=== PATIENT | male | born 1995 | race Caucasian/White ===

== ENCOUNTER 2017-04-13 01:07 | Inpatient (IN) | payer MEDICAID ==
[~2017-04-13] VITALS: Ht 165.1 cm; Wt 89.9 kg
[2017-04-13 02:12] LABS: BASOPHILS # (AUTO) 0.04 x10^3/uL (0-0.1); BASOPHILS % (AUTO) 0 % (0-1); EOSINOPHILS # (AUTO) 0.06 x10^3/uL (0-0.4); EOSINOPHILS % (AUTO) 1 % (1-7); LYMPHOCYTES # (AUTO) 1.47 x10^3/uL (1-3.4); LYMPHOCYTES % (AUTO) 13 % (22-44); MD NO; MEAN CORPUSCULAR HEMOGLOBIN 30.7 pg (27.5-34.5); MEAN CORPUSCULAR HGB CONC 33.7 g/dL (33.2-36.2); MEAN CORPUSCULAR VOLUME 90.9 fL (81-97); MEAN PLATELET VOLUME 8.7 fL (7.4-10.4); MONOCYTES # (AUTO) 1.01 x10^3/uL (0.2-0.8); MONOCYTES % (AUTO) 9 % (2-9); NEUTROPHILS # (AUTO) 9.18 x10^3/uL (1.8-6.8); NEUTROPHILS % (AUTO) 78 % (42-75); PLATELET COUNT 127 x10^3/uL (130-400); RED BLOOD COUNT 5.05 x10^6/uL (4.38-5.82); RED CELL DISTRIBUTION WIDTH 13.2 % (9.4-14.8)
[2017-04-13 02:18] LABS: ALBUMIN 3.7 g/dL (3.4-5.0); ANION GAP 6 mmol/L (5-15); CALCIUM 8.7 mg/dL (8.5-10.1); CHLORIDE 98 mmol/L (98-107)
[2017-04-13] MEDS ORDERED: OMNIPAQUE 350 MG/ML, 75ML BOTTLE ONE (02:38)
[2017-04-13] MEDS ORDERED: CLINDAMYCIN PMX 600MG/50ML 50 ML ONE (03:26)
[2017-04-13] MEDS ORDERED: CLINDAMYCIN PMX 600MG/50ML 50 ML IV ONE (03:30)
[2017-04-13] MEDS ORDERED: MORPHINE SULFATE 4 MG/ML, 1ML ONE ×3 (03:35→17:32)
[2017-04-13] MEDS ORDERED: ONDANSETRON 2MG/ML, 2ML ONE (03:35)
[2017-04-13] MEDS ORDERED: SODIUM CHLORIDE 0.9% 1,000 ML IV ONE (03:53)
[2017-04-13] MEDS ORDERED: MORPHINE SULFATE 4 MG/ML, 1ML IVPush PRN ×2 (04:00)
[2017-04-13] MEDS ORDERED: ONDANSETRON 2MG/ML, 2ML IVPush PRN ×2 (04:00→05:00)
[2017-04-13] MEDS ORDERED: ONDANSETRON 2MG/ML, 2ML IVPush ONE (04:00)
[2017-04-13] MEDS ORDERED: ACETAMINOPHEN 325 MG TABLET PO PRN (05:00)
[2017-04-13] MEDS: KETOROLAC 30 MG/1 ML IVPush PRN ×2 (05:28→15:59)
[2017-04-13] MEDS: SODIUM CHLORIDE 0.9% 1,000 ML IV SCH ×2 (05:29→15:59)
[2017-04-13] MEDS: LACTOBACILLUS 1GM/ PACKET PO SCH ×3 (10:34→20:18)
[2017-04-13] MEDS: CLINDAMYCIN PMX 600MG/50ML 50 ML IV SCH ×2 (10:34→15:59)
[2017-04-13 12:25] VITALS: BP 112/63
[2017-04-13] MEDS ORDERED: VANCOMYCIN PMX 1GM/200ML 200 ML IV ONE (17:30)
[2017-04-13] MEDS ORDERED: VANCOMYCIN PER PHARMACY MC PRN (17:30)
[2017-04-13] MEDS: MORPHINE SULFATE 4 MG/ML, 1ML IVPush PRN (17:37)
[2017-04-13] MEDS ORDERED: PHARMACOKINETIC MONITORING MC PRN (18:00)
[2017-04-13 19:45] VITALS: BP 109/62
[2017-04-13] MEDS: NICOTINE 7 MG/24 HR PATCH.TD24 TD SCH (20:19)
[2017-04-13] MEDS: ERTAPENEM 1 GM in SODIUM CHLORIDE 0.9% 50 ML IV SCH (20:19)
[2017-04-13] MEDS: VANCOMYCIN 1,600 MG in SODIUM CHLORIDE 0.9% 250 ML IV SCH (21:12)
[2017-04-13] MEDS: OXYcodone/APAP 5/325MG TABLET PO PRN (23:09)
[2017-04-14 00:30] VITALS: BP 100/63
[2017-04-14] MEDS: SODIUM CHLORIDE 0.9% 1,000 ML IV SCH ×3 (01:29→20:49)
[2017-04-14] MEDS: MORPHINE SULFATE 4 MG/ML, 1ML IVPush PRN ×3 (03:44→19:11)
[2017-04-14 05:01] LABS: BASOPHILS # (AUTO) 0.04 x10^3/uL (0-0.1); BASOPHILS % (AUTO) 0 % (0-1); EOSINOPHILS # (AUTO) 0.15 x10^3/uL (0-0.4); EOSINOPHILS % (AUTO) 2 % (1-7); LYMPHOCYTES # (AUTO) 1.36 x10^3/uL (1-3.4); LYMPHOCYTES % (AUTO) 14 % (22-44); MD NO; MEAN CORPUSCULAR HEMOGLOBIN 30.5 pg (27.5-34.5); MEAN CORPUSCULAR HGB CONC 33.5 g/dL (33.2-36.2); MEAN CORPUSCULAR VOLUME 90.9 fL (81-97); MEAN PLATELET VOLUME 8.6 fL (7.4-10.4); MONOCYTES # (AUTO) 1.01 x10^3/uL (0.2-0.8); MONOCYTES % (AUTO) 11 % (2-9); NEUTROPHILS # (AUTO) 6.96 x10^3/uL (1.8-6.8); NEUTROPHILS % (AUTO) 73 % (42-75); PLATELET COUNT 138 x10^3/uL (130-400); RED BLOOD COUNT 4.66 x10^6/uL (4.38-5.82)
[2017-04-14] MEDS: OXYcodone/APAP 5/325MG TABLET PO PRN ×4 (05:20→21:40)
[2017-04-14 06:40] VITALS: BP 133/77
[2017-04-14] MEDS: LACTOBACILLUS 1GM/ PACKET PO SCH ×3 (08:20→20:33)
[2017-04-14] MEDS: VANCOMYCIN 1,600 MG in SODIUM CHLORIDE 0.9% 250 ML IV SCH ×2 (08:20→20:33)
[2017-04-14 14:12] VITALS: BP 132/75
[2017-04-14] MEDS: ERTAPENEM 1 GM in SODIUM CHLORIDE 0.9% 50 ML IV SCH (17:31)
[2017-04-14] MEDS: KETOROLAC 30 MG/1 ML IVPush PRN (17:31)
[2017-04-14 18:31] VITALS: BP 113/66
[2017-04-14] MEDS: NICOTINE 7 MG/24 HR PATCH.TD24 TD SCH (19:00)
[2017-04-14] MEDS: TEMAZEPAM 15 MG CAPSULE PO PRN (20:33)
[2017-04-15 01:17] VITALS: BP 130/66
[2017-04-15] MEDS: ERTAPENEM 1 GM in SODIUM CHLORIDE 0.9% 50 ML IV SCH (03:33)
[2017-04-15] MEDS: MORPHINE SULFATE 4 MG/ML, 1ML IVPush PRN (04:50)
[2017-04-15] MEDS: SODIUM CHLORIDE 0.9% 1,000 ML IV SCH ×2 (06:01→16:19)
[2017-04-15] MEDS: LACTOBACILLUS 1GM/ PACKET PO SCH ×3 (08:33→20:50)
[2017-04-15] MEDS: VANCOMYCIN 1,600 MG in SODIUM CHLORIDE 0.9% 250 ML IV SCH ×2 (08:33→20:50)
[2017-04-15 08:34] VITALS: BP 123/73
[2017-04-15 12:35] VITALS: BP 123/71
[2017-04-15 19:01] VITALS: BP 126/75
[2017-04-15] MEDS: OXYcodone/APAP 5/325MG TABLET PO PRN (19:23)
[2017-04-15] MEDS: TEMAZEPAM 15 MG CAPSULE PO PRN (20:50)
[2017-04-15] MEDS: NICOTINE 7 MG/24 HR PATCH.TD24 TD SCH (20:50)
[2017-04-16 03:02] VITALS: BP 116/72
[2017-04-16] MEDS: SODIUM CHLORIDE 0.9% 1,000 ML IV SCH ×2 (03:05→08:54)
[2017-04-16] MEDS: ERTAPENEM 1 GM in SODIUM CHLORIDE 0.9% 50 ML IV SCH (03:05)
[2017-04-16 07:19] VITALS: BP 118/72
[2017-04-16] MEDS: VANCOMYCIN 1,600 MG in SODIUM CHLORIDE 0.9% 250 ML IV SCH (08:53)
[2017-04-16] MEDS: LACTOBACILLUS 1GM/ PACKET PO SCH ×3 (08:53→21:39)
[2017-04-16] MEDS ORDERED: CEFTRIAXONE PMX 2GM/50ML 50 ML IV SCH (12:00)
[2017-04-16 13:00] VITALS: BP 110/65
[2017-04-16] MEDS: CEFTRIAXONE 2,000 MG in SODIUM CHLORIDE 0.9% 50 ML IV SCH (14:28)
[2017-04-16] MEDS: OXYcodone/APAP 5/325MG TABLET PO PRN (14:28)
[2017-04-16] MEDS: VANCOMYCIN 1,300 MG in SODIUM CHLORIDE 0.9% 250 ML IV SCH (17:22)
[2017-04-16] MEDS: NICOTINE 7 MG/24 HR PATCH.TD24 TD SCH (17:23)
[2017-04-16 19:56] VITALS: BP_SYST 122; BP_SYST 129; BP_DIAS 78; BP_DIAS 84
[2017-04-16] MEDS: TEMAZEPAM 15 MG CAPSULE PO PRN (21:38)
[2017-04-17 01:04] VITALS: BP 119/76
[2017-04-17] MEDS: VANCOMYCIN 1,300 MG in SODIUM CHLORIDE 0.9% 250 ML IV SCH ×2 (01:04→08:40)
[2017-04-17 05:42] LABS: CREATININE 0.71 mg/dL (0.7-1.3)
[2017-04-17 08:03] VITALS: BP 121/74
[2017-04-17] MEDS: LACTOBACILLUS 1GM/ PACKET PO SCH ×3 (08:40→19:49)
[2017-04-17] MEDS ORDERED: OMNIPAQUE 350 MG/ML, 75ML BOTTLE ONE (12:15)
[2017-04-17] MEDS: OXYcodone/APAP 5/325MG TABLET PO PRN ×2 (13:05→19:49)
[2017-04-17] MEDS: CEFTRIAXONE 2,000 MG in SODIUM CHLORIDE 0.9% 50 ML IV SCH (13:05)
[2017-04-17 13:40] VITALS: BP 102/61
[2017-04-17] MEDS: NICOTINE 7 MG/24 HR PATCH.TD24 TD SCH (19:00)
[2017-04-17 19:11] VITALS: BP 106/66
[2017-04-17] MEDS: TEMAZEPAM 15 MG CAPSULE PO PRN (19:49)
[2017-04-18 01:10] VITALS: BP 101/72
[2017-04-18 03:12] LABS: BASOPHILS # (AUTO) 0.06 x10^3/uL (0-0.1); BASOPHILS % (AUTO) 1 % (0-1); EOSINOPHILS # (AUTO) 0.19 x10^3/uL (0-0.4); EOSINOPHILS % (AUTO) 3 % (1-7); LYMPHOCYTES # (AUTO) 2.32 x10^3/uL (1-3.4); LYMPHOCYTES % (AUTO) 34 % (22-44); MD NO; MEAN CORPUSCULAR HEMOGLOBIN 30.2 pg (27.5-34.5); MEAN CORPUSCULAR HGB CONC 33.8 g/dL (33.2-36.2); MEAN CORPUSCULAR VOLUME 89.4 fL (81-97); MEAN PLATELET VOLUME 7.5 fL (7.4-10.4); MONOCYTES # (AUTO) 0.75 x10^3/uL (0.2-0.8); MONOCYTES % (AUTO) 11 % (2-9); NEUTROPHILS # (AUTO) 3.44 x10^3/uL (1.8-6.8); NEUTROPHILS % (AUTO) 51 % (42-75); PLATELET COUNT 221 x10^3/uL (130-400); RED BLOOD COUNT 5.08 x10^6/uL (4.38-5.82); RED CELL DISTRIBUTION WIDTH 12.8 % (9.4-14.8)
[2017-04-18 03:22] LABS: ANION GAP 8 mmol/L (5-15); CALCIUM 8.5 mg/dL (8.5-10.1); CHLORIDE 105 mmol/L (98-107); CREATININE 0.75 mg/dL (0.7-1.3)
[2017-04-18 03:23] LABS: VANCOMYCIN,TROUGH 5.9 mcg/mL (5.0-10.0)
[2017-04-18] MEDS ORDERED: VANCOMYCIN 1,400 MG in SODIUM CHLORIDE 0.9% 250 ML IV SCH (03:30)
[2017-04-18 08:06] VITALS: BP 108/67
[2017-04-18] MEDS: LACTOBACILLUS 1GM/ PACKET PO SCH ×3 (08:21→19:32)
[2017-04-18] MEDS: OXYcodone/APAP 5/325MG TABLET PO PRN ×2 (11:07→19:31)
[2017-04-18] MEDS: VANCOMYCIN 1,200 MG in SODIUM CHLORIDE 0.9% 250 ML IV SCH ×2 (11:08→19:31)
[2017-04-18] MEDS: LORazepam 1MG TABLET PO PRN (11:13)
[2017-04-18 12:51] VITALS: BP 108/64
[2017-04-18 19:30] VITALS: BP 119/77
[2017-04-18] MEDS: TEMAZEPAM 15 MG CAPSULE PO PRN (19:32)
[2017-04-18] MEDS: NICOTINE 7 MG/24 HR PATCH.TD24 TD SCH (19:32)
[2017-04-19] MEDS: OXYcodone/APAP 5/325MG TABLET PO PRN ×4 (02:14→19:56)
[2017-04-19 03:03] VITALS: BP 108/70
[2017-04-19] MEDS: VANCOMYCIN 1,200 MG in SODIUM CHLORIDE 0.9% 250 ML IV SCH ×3 (03:03→19:57)
[2017-04-19 07:29] VITALS: BP 95/56
[2017-04-19] MEDS: LORazepam 1MG TABLET PO PRN ×2 (09:23→16:25)
[2017-04-19] MEDS: LACTOBACILLUS 1GM/ PACKET PO SCH ×3 (09:23→19:57)
[2017-04-19 13:07] VITALS: BP 113/70
[2017-04-19 18:25] VITALS: BP 116/73
[2017-04-19] MEDS: NICOTINE 7 MG/24 HR PATCH.TD24 TD SCH (19:57)
[2017-04-19] MEDS: TEMAZEPAM 15 MG CAPSULE PO PRN (20:55)
[2017-04-20 02:30] VITALS: BP 108/57
[2017-04-20] MEDS: OXYcodone/APAP 5/325MG TABLET PO PRN ×3 (02:32→19:00)
[2017-04-20] MEDS: VANCOMYCIN 1,200 MG in SODIUM CHLORIDE 0.9% 250 ML IV SCH ×3 (02:32→19:59)
[2017-04-20] MEDS: LORazepam 1MG TABLET PO PRN ×3 (04:29→17:00)
[2017-04-20] MEDS: LACTOBACILLUS 1GM/ PACKET PO SCH ×3 (09:59→20:00)
[2017-04-20 10:03] VITALS: BP 124/74
[2017-04-20 16:00] VITALS: BP 122/75
[2017-04-20 18:30] VITALS: BP 135/81
[2017-04-20] MEDS: NICOTINE 7 MG/24 HR PATCH.TD24 TD SCH (19:59)
[2017-04-20] MEDS: TEMAZEPAM 15 MG CAPSULE PO PRN (22:02)
[2017-04-21 03:06] VITALS: BP 118/73
[2017-04-21] MEDS: VANCOMYCIN 1,200 MG in SODIUM CHLORIDE 0.9% 250 ML IV SCH ×2 (03:30→11:04)
[2017-04-21] MEDS: OXYcodone/APAP 5/325MG TABLET PO PRN ×2 (03:30→08:09)
[2017-04-21 06:33] VITALS: BP 118/67
[2017-04-21] MEDS: LORazepam 1MG TABLET PO PRN (08:09)
[2017-04-21] MEDS: LACTOBACILLUS 1GM/ PACKET PO SCH (08:09)
[2017-04-21] MEDS ORDERED: ACID1GRA3 PO (11:29)
[2017-04-21] MEDS ORDERED: LINE600T37 PO (11:29)
[2017-04-21] MEDS ORDERED: ACET325T14 PO (11:29)
[2017-04-21] MEDS ORDERED: IBUP-1484 PO (11:31)
== END 2017-04-21 13:17 | disposition home or self-care (01) | DRG 854 ==
LOC: ED 04:16 → EDIP 04:20 → 3NE 04:56
PROVIDERS: ADMIT Internal Medicine; ATTEND Internal Medicine
PROC: 0W920ZZ Drainage of Face, Open Approach (ICD-10-PCS; principal; 2017-04-13)
DX: A41.9 Sepsis, unspecified organism (principal); L03.211 Cellulitis of face; L02.01 Cutaneous abscess of face; B95.62 Methicillin resistant Staphylococcus aureus infection as the cause of diseases classified elsewhere; M54.2 Cervicalgia
CPT/HCPCS: 10060; 36415; 70487; 80048; 80202; 82040; 82565; 83605; 84145; 84520; 85025; 87040; 87070; 87077; 87147; 87186; 87205; 96365; 96375; 96376; J0696; J1335; J1885; J2405; J3370; Q9967; J7030; J7050